=== PATIENT | female | born 2000 | race Caucasian/White ===

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

== ENCOUNTER 2019-10-24 01:01 | Outpatient (CLI) | payer OTHER, SELFPAY ==
--- NOTE | 2019-10-24 13:45 | DI.DEXA_ITS ---
EXAM: XR DEXA BONE DENSITY W/WO KYLAH INDICATION: CELIAC DISEASE, K90.0. COMPARISON: ACROMIO CLAVICULAR JOINTS from 01/17/2016 FINDINGS: The KYLAH image shows no evidence of compression fractures. The upper thorax is not included on the e xam. The bone mineral density measurements of the lumbar spine correspond to a Z-score of -0.3, in t he normal range. The bone mineral density measurements of the left hip correspond to a Z-score of 0. 6 and a femoral neck Z-score of 0.1, in the normal range. The right forearm Z-score in the distal 3r d is 0.2, in the normal range. IMPRESSION: Normal bone mineral density.
[2019-10-24 14:36] LABS: HCT 39.1 % (36.0-46.0); HGB 13.3 g/dL (12.0-15.5); Mean Corpuscular Volume 85.4 fL (80-95); Mean Platelet Volume 9.9 fL (8.0-11.0); Platelet Count 398 x1000/uL (130-400); RBC 4.58 m/cumm (4.00-5.20); RBC Distribution Width 12.9 % (11.7-14.6); White Blood Cell Count 7.39 k/cumm (4.4-10.8)
[2019-10-24 15:27] LABS: ALT 20 U/L (14-59); AST 22 U/L (15-37); Albumin 4.1 g/dL (3.4-5.0); Alkaline Phosphatase 68 U/L (46-116); Anion Gap 7.9 mmol/L (3-11); BUN 12 mg/dL (7-18); Bilirubin, Total 0.2 mg/dL (0.2-1.0); CO2 30.1 mmol/L (21.0-32.0); CREATININE 0.77 mg/dL (0.55-1.02); Calcium 9.6 mg/dL (8.5-10.1); Chloride 105 mmol/L (98-107); Ferritin 19 ng/mL (8-252); Glucose 96 mg/dL (74-106); Potassium 4.2 mmol/L (3.5-5.1); Sodium 143 mmol/L (136-145); TSH (W/Ref FT4) 2.45 uIU/mL (0.52-4.13); Total Protein 7.4 g/dL (6.4-8.2)
[2019-10-25 18:54] LABS: Tissue Transglutaminase Ab IgA 1.3 U/mL
== END 2019-10-24 01:21 ==
PROVIDERS: PCP Nurse Practitioner Family; Visit Provider Nurse Practitioner Family
DX: K90.0 Celiac disease (principal); Z13.820 Encounter for screening for osteoporosis
CPT/HCPCS: 36415; 77080; 80053; 85027; 82728; 83516; 84443

== ENCOUNTER 2020-07-01 18:50 | Emergency (ER) | payer OTHER, SELFPAY ==
[2020-07-01] VITALS (24 sets, daily range): BP systolic 117–135; BP diastolic 67–95; PULSE 64–86; RESP 9–19; TEMP 37.2; O2SAT 91–100
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
--- NOTE | 2020-07-01 19:30 | DI.CT_ITS ---
EXAM: CT HEAD CERV SPINE FACIAL WO COMPARISON: No exams were available for comparison FINDINGS: CT examination of the cervical spine was performed without contrast administration. There is no evide nce of acute cervical spine fracture or dislocation. Tracheolaryngeal structures appear intact. No ce rvical mass or adenopathy. Intervertebral disc spaces are well maintained. Noncontrast cranial CT was performed. Ventricular system is normal in appearance. No evidence of acut e intracranial hemorrhage, mass effect, or midline shift. No calvarial fracture. The orbital and temp oral bone structures appear intact. Scanning of the facial bones was also performed. No facial fracture identified. Orbital contents ap pear intact. Incidental apparent left maxillary retention cyst noted. IMPRESSION: No evidence of acute cervical spine injury. No evidence of acute intracranial injury. No evidence of acute facial injury. RADIATION DOSE DELIVERED: 1,562.26mGy.cm Total DLP 1,562.26mGy.cm Total DLP DATA REPOSITORY: All CT scans at this facility are submitted to the National Radiology Data Registry (NRDR) Dose Index Registry (DIR) with the [employer] ([employer]). RADIATION OPTIMIZATION: All CT scans at this facility use at least one of these dose optimization te chniques: automated exposure control; mA and/or kV adjustment per patient size (includes targeted exa ms where dose is matched to clinical indication); or iterative reconstruction.
--- NOTE | 2020-07-01 19:30 | DI.CT_ITS ---
EXAM: CT CHEST/ABD/PEL W TECHNIQUE: CT examination of the chest, abdomen, and pelvis was performed with bolus infusion of 100 cc of Omnipaque 350. COMPARISON: CT CT THORACIC LUMBAR SPINE REC from 07/01/2020 FINDINGS: There is no evidence of a thoracic vascular injury. The lungs are clear. No pneumothorax or pleural effusion. No mediastinal hematoma. No adenopathy in the chest. Tracheobronchial tree appears intact. There is a left hepatic lobe laceration/contusion, laceration extends approximately 6-7 cm in the lat eral segment of the left hepatic lobe, grade 3 hepatic laceration. There is a small to moderate hemo peritoneum. No acute hemorrhage identified. The spleen, and pancreas appear normal. Gallbladder and bile ducts are normal. Adrenals and kidneys are unremarkable. No evidence of urinary tract injury or obstruction. No abdominal or pelvic vascular injury seen. No abdominal or pelvic adenopathy. No significant abdomi nal wall hernia or hematoma. No evidence of bowel injury. IUD noted in the uterus. Additional thoracic and lumbar spine reconstructions were obtained from the raw data set. There is n o evidence of thoracic spine injury or lumbar spine injury. IMPRESSION: Grade 3 left hepatic lobe laceration with moderate hemoperitoneum. No additional significant finding s. RADIATION DOSE DELIVERED: Total DLP Total DLP Total DLP DATA REPOSITORY: All CT scans at this facility are submitted to the National Radiology Data Registry (NRDR) Dose Index Registry (DIR) with the [employer] (ACR). RADIATION OPTIMIZATION: All CT scans at this facility use at least one of these dose optimization te chniques: automated exposure control; mA and/or kV adjustment per patient size (includes targeted exa ms where dose is matched to clinical indication); or iterative reconstruction.
[2020-07-01] MEDS: Normal Saline 1,000 ML 1000 ML IV (19:53)
[2020-07-01 20:17] LABS: Abs Immature Grans 0.05 10^3/uL (0.0-0.06); Absolute Neutrophil Count 13.86 10^3/uL (1.2-6.7); Basophils % 0.4; Eosinophils % 0.1; HCT 36.4 % (36.0-46.0); HGB 12.1 g/dL (11.2-15.7); Immature Grans % 0.3; Lymphocytes % 10.3; MCHC 33.2 % (32.0-36.0); MCV 84.3 fL (80-95); MPV 9.8 fL (8.0-11.0); Monocytes % 7.9; Nucleated RBC 0 %; Platelet Count 370 10^3/uL (130-400); RBC 4.32 10^6/uL (3.93-5.22); RDW 12.5 % (11.7-14.6); RDW-SD 38.3 fL; WBC 17.11 10^3/uL (4.4-10.8)
[2020-07-01 20:19] LABS: Absolute Basophil Count 0.07 10^3/uL (0.0-0.2); Absolute Eosinophil Count 0.02 10^3/uL (0.0-0.7); Absolute Lymphocyte Count 1.76 10^3/uL (1.2-3.4); Absolute Monocyte Count 1.35 10^3/uL (0.1-0.8)
[2020-07-01 20:27] LABS: ALT 131 U/L (14-59); AST 152 U/L (15-37); Albumin 3.8 g/dL (3.4-5.0); Alkaline Phosphatase 57 U/L (46-116); Anion Gap 9.9 mmol/L (3-11); BUN 17 mg/dL (7-18); Bilirubin, Total 0.2 mg/dL (0.2-1.0); CO2 25.1 mmol/L (21.0-32.0); CREATININE 0.85 mg/dL (0.55-1.02); Calcium 8.7 mg/dL (8.5-10.1); Chloride 102 mmol/L (98-107); Glucose 111 mg/dL (74-106); Potassium 3.4 mmol/L (3.5-5.1); Sodium 137 mmol/L (136-145); Total Protein 7.3 g/dL (6.4-8.2)
[2020-07-01] MEDS: Omnipaque 350 MG/ML 100 ML BTL IJ (20:30)
[2020-07-01] MEDS: Normal Saline - Diluent 50 ML VIAL IV (20:54)
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
[2020-07-01] MEDS: Normal Saline Flush 10 ML SYR IVP (21:10)
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
[2020-07-01] MEDS: Ondansetron 4 MG/2 ML VIAL IVP (21:27)
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
[2020-07-01] MEDS: HYDROmorphone 2 MG/ML VIAL 1 MG IVP (21:31)
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
[2020-07-01] MEDS: HYDROmorphone 2 MG/ML VIAL 0.5 MG IVP (22:27)
== END 2020-07-01 22:30 | disposition short-term general hospital (02) ==
PROVIDERS: Physician Assistant; Emergency Provider Student in an Organized Health Care Education/Training Program; PCP Nurse Practitioner Family
DX: S06.9X9A Unspecified intracranial injury with loss of consciousness of unspecified duration, initial encounter (principal); S36.116A Major laceration of liver, initial encounter; S52.351A Displaced comminuted fracture of shaft of radius, right arm, initial encounter for closed fracture; S52.611A Displaced fracture of right ulna styloid process, initial encounter for closed fracture; S00.81XA Abrasion of other part of head, initial encounter; V18.0XXA Pedal cycle driver injured in noncollision transport accident in nontraffic accident, initial encounter; Y93.55 Activity, bike riding
CPT/HCPCS: 29105; 36415; 74177; 80053; 81025; 96361; 96374; 96375; 96376; 99285; 70450; 70486; 71260; 72125; 73090; 73110; 85025; J2405; J3490

== ENCOUNTER 2020-07-18 12:25 | Outpatient (REF) | payer OTHER, SELFPAY ==
[2020-07-18 15:56] LABS: HCT 39.8 % (36.0-46.0); HGB 12.9 g/dL (11.2-15.7); MCH 27.8 pg (27.0-33.0); MCHC 32.4 % (32.0-36.0); MCV 85.8 fL (80-95); MPV 10.4 fL (8.0-11.0); Platelet Count 512 10^3/uL (130-400); RBC 4.64 10^6/uL (3.93-5.22); RDW 12.5 % (11.7-14.6); RDW-SD 38.6 fL; WBC 8.59 10^3/uL (4.4-10.8)
[2020-07-18 16:06] LABS: INR 1.3 (0.9-1.1); Prothrombin Time 12.8 sec (9.3-11.0)
[2020-07-18 16:26] LABS: ALT 27 U/L (14-59); AST 19 U/L (15-37); Albumin 3.9 g/dL (3.4-5.0); Alkaline Phosphatase 69 U/L (46-116); Anion Gap 5.8 mmol/L (3-11); BUN 13 mg/dL (7-18); Bilirubin, Total 0.2 mg/dL (0.2-1.0); CO2 29.2 mmol/L (21.0-32.0); CREATININE 0.78 mg/dL (0.55-1.02); Calcium 9.4 mg/dL (8.5-10.1); Calculated LDL 98 mg/dL (<100); Chloride 103 mmol/L (98-107); Cholesterol 179 mg/dL (<200); Glucose 64 mg/dL (74-106); HDL Cholesterol 60 mg/dL (40-60); Potassium 4.1 mmol/L (3.5-5.1); Sodium 138 mmol/L (136-145); Total Protein 7.5 g/dL (6.4-8.2); Triglyceride 107 mg/dL (<150)
[2020-07-18 17:24] LABS: ALT 27 U/L (14-59); AST 21 U/L (15-37); Albumin 3.7 g/dL (3.4-5.0); Alkaline Phosphatase 67 U/L (46-116); Bilirubin, Direct 0.06 mg/dL (0.00-0.20); Bilirubin, Total 0.3 mg/dL (0.2-1.0); Total Protein 7.4 g/dL (6.4-8.2)
[2020-07-19 07:06] LABS: Vitamin D 25 Total 46.5 ng/ml (30-100)
== END 2020-07-18 12:45 ==
LOC: NCHCN 12:25
PROVIDERS: PCP Nurse Practitioner Family; Visit Provider Nurse Practitioner Family
DX: R79.89 Other specified abnormal findings of blood chemistry (principal); S36.113D Laceration of liver, unspecified degree, subsequent encounter
CPT/HCPCS: 80053; 80061; 80076; 82306; 85027; 84443; 85610

== ENCOUNTER 2020-07-26 13:29 | Outpatient (REF) | payer OTHER, SELFPAY ==
[2020-07-26 18:54] LABS: HCT 41.7 % (36.0-46.0); HGB 13.1 g/dL (11.2-15.7); MCH 27.4 pg (27.0-33.0); MCHC 31.4 % (32.0-36.0); MCV 87.2 fL (80-95); MPV 10.8 fL (8.0-11.0); Platelet Count 477 10^3/uL (130-400); RBC 4.78 10^6/uL (3.93-5.22); RDW 12.6 % (11.7-14.6); WBC 6.65 10^3/uL (4.4-10.8)
[2020-07-26 19:12] LABS: INR 1.3 (0.9-1.1)
== END 2020-07-26 13:49 ==
LOC: NCHCN 13:29
PROVIDERS: PCP Nurse Practitioner Family; Visit Provider Nurse Practitioner Family
DX: R79.89 Other specified abnormal findings of blood chemistry (principal); S36.113D Laceration of liver, unspecified degree, subsequent encounter
CPT/HCPCS: 85027; 85610

== ENCOUNTER 2022-05-16 15:42 | Outpatient (REF) | payer OTHER, SELFPAY ==
[2022-05-16 17:52] LABS: HCT 37.5 % (36.0-46.0); HGB 12.4 g/dL (11.2-15.7); MCH 29.1 pg (27.0-33.0); MCHC 33.1 % (32.0-36.0); MCV 88 fL (80-95); MPV 10.2 fL (8.0-11.0); Platelet Count 390 10^3/uL (130-400); RBC 4.26 10^6/uL (3.93-5.22); RDW 12.1 % (11.7-14.6); RDW-SD 39.2 fL; WBC 7.94 10^3/uL (4.4-10.8)
[2022-05-16 18:16] LABS: ALT 21 U/L (14-59); AST 18 U/L (15-37); Albumin 4.4 g/dL (3.4-5.0); Alkaline Phosphatase 46 U/L (46-116); Anion Gap 9.2 mmol/L (3-11); BUN 16 mg/dL (7-18); Bilirubin, Total 0.4 mg/dL (0.2-1.0); CO2 29.8 mmol/L (21.0-32.0); CREATININE 0.8 mg/dL (0.55-1.02); Calcium 9.2 mg/dL (8.5-10.1); Chloride 100 mmol/L (98-107); Ferritin 16 ng/mL (8-252); Glucose 91 mg/dL (74-106); Potassium 4.1 mmol/L (3.5-5.1); Sodium 139 mmol/L (136-145); TSH (W/Ref FT4) 0.97 uIU/mL (0.36-3.74); Total Protein 7.5 g/dL (6.4-8.2)
[2022-05-19 05:57] LABS: Vitamin D 25 Total 46.2 ng/mL (30-100)
[2022-05-20 15:57] LABS: Tissue Transglutaminase Ab IgA 1.3 U/mL
== END 2022-05-16 15:43 | disposition home or self-care (01) ==
LOC: NCHCN 15:42
PROVIDERS: PCP Nurse Practitioner Family; Visit Provider Nurse Practitioner Family
DX: Z86.2 Personal history of diseases of the blood and blood-forming organs and certain disorders involving the immune mechanism (principal); K90.0 Celiac disease
CPT/HCPCS: 80053; 82306; 85027; 82728; 83516; 84443

== ENCOUNTER 2022-06-30 16:16 | Outpatient (REF) | payer OTHER, SELFPAY ==
[2022-07-02 14:28] LABS: COVID-19 RT-PCR UVMMC Result Negative (Negative)
== END 2022-06-30 16:17 | disposition home or self-care (01) ==
LOC: NCHCN 16:16
PROVIDERS: PCP Nurse Practitioner Family; Visit Provider Nurse Practitioner Family
DX: Z20.822 Contact with and (suspected) exposure to COVID-19 (principal); J06.9 Acute upper respiratory infection, unspecified
CPT/HCPCS: U0003

== ENCOUNTER 2022-08-28 12:55 | Outpatient (REF) | payer OTHER, SELFPAY ==
--- NOTE | 2022-08-28 11:00 | PAPFT_PTH ---
PATIENT: Nuria Carlos LOC: [facility] U#:[id number] AGE/SX: ROOM: RE08/28/[address]: Sonja Odonnell DO : 2000 BED: DIS: 08/28/2022 SPEC #: [id number] RECD: 08/28/22 13:05 STATUS: ARTURO REQ #: [id number] HOLGER: 08/28/22 11:[address]: Sonja Odonnell DEPT: [facility] Cytology RECD BY: Lisandra Rodriguez ENTERED: 08/28/22 13:05 SP TYPE: PAPFT OTHR DR: Denae Cerna Tissues: 1 - CX/ENDOCX FOR PAP SMEARS Procedures: PAP THIN PREP/[facility] Screening Comments: [id number] (CHLAMYDIA/GC)
[2022-08-30 09:40] LABS: Chlamydia Result Negative (Negative); GC Result Negative (Negative)
== END 2022-08-28 12:56 | disposition home or self-care (01) ==
LOC: LBN 12:55
PROVIDERS: PCP Nurse Practitioner Family; Visit Provider Obstetrics & Gynecology
DX: Z12.4 Encounter for screening for malignant neoplasm of cervix (principal); Z11.3 Encounter for screening for infections with a predominantly sexual mode of transmission
CPT/HCPCS: 87491; 87591; 88142

== ENCOUNTER 2023-06-11 15:14 | Outpatient (CLI) | payer BC, SELFPAY ==
[2023-06-11 14:50] LABS: HCT 40.2 % (36.0-46.0); HGB 13.3 g/dL (11.2-15.7); MCH 28.8 pg (27.0-33.0); MCHC 33.1 % (32.0-36.0); MCV 87 fL (80-95); MPV 9.6 fL (8.0-11.0); Platelet Count 407 10^3/uL (130-400); RBC 4.62 10^6/uL (3.93-5.22); WBC 13.67 10^3/uL (4.4-10.8)
[2023-06-11 15:38] LABS: Ferritin 19 ng/mL (8-252); TSH (W/Ref FT4) 1.35 uIU/mL (0.36-3.74)
[2023-06-13 16:24] LABS: Tissue Transglutaminase Ab IgG 2.2 U/mL
== END 2023-06-11 15:15 | disposition home or self-care (01) ==
LOC: LBO 15:19
PROVIDERS: PCP Nurse Practitioner Family; Visit Provider Nurse Practitioner Family
DX: K90.0 Celiac disease (principal)
CPT/HCPCS: 36415; 85027; 86364; 82728; 84443

== ENCOUNTER 2023-06-17 17:09 | Outpatient (REF) | payer BC, SELFPAY ==
[2023-06-17 16:28] LABS: Abs Immature Grans 0.01 10^3/uL (0.0-0.06); Absolute Eosinophil Count 0.24 10^3/uL (0.0-0.7); Absolute Monocyte Count 0.49 10^3/uL (0.1-0.8); Absolute Neutrophil Count 3.87 10^3/uL (1.2-6.7); Basophils % 1.4; Eosinophils % 3.3; HCT 40.1 % (36.0-46.0); HGB 13.1 g/dL (11.2-15.7); Immature Grans % 0.1; Lymphocytes % 34.7; MCHC 32.7 % (32.0-36.0); MCV 89 fL (80-95); MPV 10.5 fL (8.0-11.0); Monocytes % 6.8; Neutrophils % 53.7; Platelet Count 391 10^3/uL (130-400); RBC 4.52 10^6/uL (3.93-5.22); RDW 12.9 % (11.7-14.6); RDW-SD 42.3 fL; WBC 7.21 10^3/uL (4.4-10.8)
== END 2023-06-17 17:10 | disposition home or self-care (01) ==
LOC: NCHCN 17:09
PROVIDERS: PCP Nurse Practitioner Family; Visit Provider Nurse Practitioner Family
DX: K90.0 Celiac disease (principal)
CPT/HCPCS: 85025

== ENCOUNTER → 2023-06-19 10:01 | Outpatient (CLI) | payer BC, SELFPAY ==
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
== END ==
PROVIDERS: PCP Nurse Practitioner Family; Visit Provider Physician Assistant Medical
DX: M25.521 Pain in right elbow (principal); V18.0XXA Pedal cycle driver injured in noncollision transport accident in nontraffic accident, initial encounter
CPT/HCPCS: 73080

== ENCOUNTER 2025-10-09 12:00 | Outpatient (REF) | payer OTHER, SELFPAY ==
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
== END 2025-10-09 12:01 | disposition home or self-care (01) ==
LOC: LBN 12:00
PROVIDERS: Visit Provider Obstetrics & Gynecology
DX: N87.0 Mild cervical dysplasia (principal)
CPT/HCPCS: 88305